=== PATIENT | female | born 1935 | race Asian ===

== ENCOUNTER → 2017-04-16 | Outpatient (CLI) | payer OTHER ==
[~2017-04-16] MED LIST: ALIVE VITAMIN; AMLO-511 PO; ASCO500 PO; ASPI81TA42 PO; CALC-590 PO; FISH1CAP49 PO; LOSA50TA37 PO; METF500T4 PO; OMEP20 PO
== END | disposition home or self-care (01) ==
LOC: RADPV 09:07
PROVIDERS: ATTEND Internal Medicine
DX: N28.1 Cyst of kidney, acquired (principal); K73.9 Chronic hepatitis, unspecified
CPT/HCPCS: 76700